=== PATIENT | female | born 1990 | race Two or more races ===

== ENCOUNTER 2023-07-21 13:52 | Emergency (ER) | payer OTHER ==
[~2023-07-21] VITALS: Ht 160 cm; Wt 98.3 kg
[2023-07-21 15:29] LABS: COVID19 ANTIGEN SOFIA FIA NEGATIVE (NEGATIVE); Rapid Influenza A Negative (Negative); Rapid Influenza B Negative (Negative)
[2023-07-21] MEDS ORDERED: cefTRIAXone SOD 1,000 MG VL IM ONE (16:45)
[2023-07-21] MEDS ORDERED: methylPREDNISolone SOD SUCC 40 MG/ML VL IM ONE (16:45)
[2023-07-21] MEDS ORDERED: LEVO500T91 PO (16:52)
[2023-07-21] MEDS ORDERED: PRED10TA PO (16:52)
[2023-07-21 18:18] VITALS: BP 139/82; PULSE 100; RESP 18; TEMP 98.6; O2SAT 95
== END 2023-07-21 18:43 | disposition home or self-care (01) ==
LOC: ER 13:52
DX: J40 Bronchitis, not specified as acute or chronic (principal); Z20.822 Contact with and (suspected) exposure to COVID-19
CPT/HCPCS: 36415; 71045; 87426; 87804